=== PATIENT | female | born 1950 | race Caucasian/White ===

== ENCOUNTER → 2019-02-10 | Outpatient (CLI) | payer MEDICARE, OTHER ==
[~2019-02-10] MED LIST: CEFPR500PT PO; DOXY-179 PO; ESTR0.62 PO; METH4TAB66 PO; TRAZ50TA34 PO
== END ==
LOC: AUD 15:03
PROVIDERS: ATTEND Physician Assistant
DX: H93.13 Tinnitus, bilateral (principal)
CPT/HCPCS: 92557; 92570

== ENCOUNTER → 2019-03-14 | Outpatient (CLI) | payer MEDICARE, OTHER ==
[~2019-03-14] MED LIST changes: +CHOL100052 PO; +DICL100G39 TOP; +FLUT16SP19; +HYDR-415 PO; +RANI-320 PO; +ROSU20TA24 PO; -TRAZ50TA34 PO; +TRAZ50TA52 PO
[2019-03-14 11:39] LABS: PLATELET COUNT, AUTOMATED 316 K/uL (150-450)
[2019-03-14 11:54] LABS: LDL CHOLESTEROL 198 mg/dl
--- NOTE | 2019-03-15 09:44 | RADIOLOGY IMAGING REPORT ---
FACILITY: [facility] [place] PATIENT NAME: Marj Sarah : 1950 MR: [id number] V: [id number] EXAM DATE: ORDERING PHYSICIAN: CHINO AKERS TECHNOLOGIST: Location: [facility] [place] Patient: Marj Sarah : 1950 Visit/Account:[id number] Date of Sevice: 03/14/2019 DEXA Scan HISTORY: Postmenopausal screening. COMPARISON: None available. LUMBAR SPINE: The bone mineral density (BMD) measured from L1-L4 correlates with a Z-score of 1.8 and a T-score of 0.5 which is normal as defined by the World Health Organization. The corresponding risk of fracture in the lumbar spine is not increased compared with a young adult reference population. HIP: Bone mineral density (BMD) measured in the left total hip region correlates with a Z-score of -0.5 an d a T-score of -1.6 which is osteopenia as defined by the World Health Organization. The correspondi ng risk of fracture in the hip is increased compared with a young adult reference population. Bone mineral density (BMD) measured in the left Femoral Neck region measures 0.853 g/cm2. IMPRESSION: 1. Lumbar spine: Normal. 2. Left total hip: Osteopenia 3. Left Femoral Neck: Bone Mineral Density is 0.853 g/cm2 The next DEXA scan of this patient should include the following sites: L1-L4 and left hip. FRAX? WHO Fracture Risk Assessment Tool link: <http://www.shef.ac.uk/FRAX/tool.jsp?[email or web address]> PLEASE NOTE: 1) The World Health Organization defines low BMD as follows: T-score Normal > -1 Osteopenia < -1 and > -2.5 Osteoporosis < -2.5 without fractures Established osteoporosis < -2.5 with fractures 2) In general, you may wish to consider: Diagnosis Treatment Follow-up DEXA Normal BMD Prevention 2-3 years Osteopenia Prevention/therapy 1-2 years Osteoporosis Therapy Yearly 3) Fracture risk estimated from the T-score is more accurate for vertebral fractures (often spontane ous) than for hip fractures. Report Dictated By: Priyank Bagley MD at 03/15/2019 9:36 AM Report E-Signed By: Priyank Bagley MD at 03/15/2019 9:38 AM WSN:[id number]
== END ==
LOC: LAB 10:48
PROVIDERS: ATTEND Emergency Medicine
DX: M85.88 Other specified disorders of bone density and structure, other site (principal); K21.9 Gastro-esophageal reflux disease without esophagitis; E78.5 Hyperlipidemia, unspecified; M06.9 Rheumatoid arthritis, unspecified; Z78.0 Asymptomatic menopausal state
CPT/HCPCS: 36415; 77080; 81001; 82040; 82247; 82306; 82310; 82374; 82435; 82465; 82565; 82947; 83718; 84075; 84132; 84155; 84295; 84443; 84450; 84460; 84478; 84520; 85025; 86140; 86200; 86430

== ENCOUNTER → 2019-03-16 | Outpatient (CLI) | payer MEDICARE, OTHER | LOC: LAB 13:40 | PROVIDERS: ATTEND Emergency Medicine | DX: R82.90 Unspecified abnormal findings in urine (principal) | CPT/HCPCS: 81001 ==

== ENCOUNTER → 2019-04-05 | Outpatient (CLI) | payer MEDICARE, OTHER | LOC: ZZPBJ 12:18 | PROVIDERS: ATTEND Orthopaedic Surgery | DX: S91.002A Unspecified open wound, left ankle, initial encounter (principal); B95.7 Other staphylococcus as the cause of diseases classified elsewhere | CPT/HCPCS: 87070; 87073 ==

== ENCOUNTER → 2019-04-11 | Outpatient (CLI) | payer MEDICARE, OTHER ==
[~2019-04-11] MED LIST changes: +EST3 PO; +LOSA25TA57 PO
== END ==
LOC: LAB 13:14
PROVIDERS: ATTEND Emergency Medicine
DX: E78.5 Hyperlipidemia, unspecified (principal)
CPT/HCPCS: 36415; 82465; 83718; 84478

== ENCOUNTER → 2019-05-11 | Outpatient (CLI) | payer MEDICARE, OTHER ==
[~2019-05-11] MED LIST changes: +LOSA50TA80 PO
== END ==
LOC: LAB 08:24
PROVIDERS: ATTEND Emergency Medicine
DX: I10 Essential (primary) hypertension (principal)
CPT/HCPCS: 36415; 82310; 82374; 82435; 82565; 82947; 84132; 84295; 84520